=== PATIENT | male | born 1995 | race Caucasian/White ===

== ENCOUNTER 2024-02-20 13:49 | Emergency (ER) | payer SELFPAY ==
[~2024-02-20] VITALS: Ht 180.3 cm; Wt 87.7 kg
[2024-02-20 14:01] VITALS: BP 137/90; TEMP 98.1
[2024-02-20] MEDS ORDERED: Ibuprofen 200 MG TAB PO ONE (15:30)
[2024-02-20] MEDS ORDERED: Ibuprofen 600 MG TAB PO ONE (15:52)
[2024-02-20 16:14] VITALS: PULSE 91
== END 2024-02-20 16:14 | disposition home or self-care (01) ==
LOC: COL.ER 13:49
DX: S80.02XA Contusion of left knee, initial encounter (principal); W17.2XXA Fall into hole, initial encounter; X50.1XXA Overexertion from prolonged static or awkward postures, initial encounter